=== PATIENT | male | born 1970 | race Caucasian/White ===

== ENCOUNTER → 2021-03-22 | Outpatient (CLI) | payer MEDICARE | LOC: MRI 14:02 | PROVIDERS: ATTEND Orthopaedic Surgery Adult Reconstructive Orthopaedic Surgery | DX: Z96.652 Presence of left artificial knee joint (principal) ==

== ENCOUNTER 2024-11-05 16:09 | Emergency (ER) | payer MEDICARE, OTHER ==
[~2024-11-05] VITALS: Ht 182.9 cm; Wt 113.4 kg
[2024-11-05 17:04] VITALS: RESP 18
[2024-11-05 17:10] VITALS: TEMP 97.9
[2024-11-05] MEDS: SODIUM CHLORIDE 0.9% 500ML 500 ML IV ONE (18:37)
[2024-11-05 18:53] LABS: BASOPHILS # (AUTO) 0.1 (0.0-0.1); BASOPHILS % 0.7 % (0.0-1.0); EOSINOPHILS # (AUTO) 0.4 (0.0-0.4); EOSINOPHILS % 4.7 % (0.0-6.0); HEMATOCRIT 42.1 % (38.2-49.6); HEMOGLOBIN 13.9 g/dL (14.0-18.0); LYMPHOCYTES # (AUTO) 2.3 (1.0-3.2); LYMPHOCYTES % 26.3 % (18.0-39.1); MEAN CORPUSCULAR HEMOGLOBIN 30.3 pg (28-32); MEAN CORPUSCULAR VOLUME 91.7 fL (81-99); MONOCYTES # (AUTO) 0.9 (0.2-0.8); MONOCYTES % 9.9 % (4.4-11.3); NEUTROPHILS # (AUTO) 5.1 (2.1-6.9); NEUTROPHILS % 58.2 % (38.7-80.0); PLATELET COUNT 343 x10e3/uL (140-360); RED BLOOD COUNT 4.59 x10e6/uL (4.3-5.7); RED CELL DISTRIBUTION WIDTH 11.7 % (11.7-14.4); WHITE BLOOD COUNT 8.85 x10e3/uL (4.8-10.8)
[2024-11-05] MEDS: HYDROCODONE/APAP 10MG-325MG TAB PO ONE (19:13)
[2024-11-05 19:14] LABS: ANION GAP 15.3 mmol/L (8-16); CALCIUM 9.7 mg/dL (8.4-10.2); CREATININE, SERUM 1.16 mg/dL (0.72-1.25); POTASSIUM 4.3 mmol/L (3.5-5.1)
[2024-11-05 19:17] LABS: ALBUMIN 3.8 g/dL (3.5-5.0); BILIRUBIN,DIRECT 0.1 mg/dL (0.0-0.5); BILIRUBIN,TOTAL 0.4 mg/dL (0.2-1.2); TOTAL PROTEIN 7.2 g/dL (6.5-8.1)
[2024-11-05] MEDS ORDERED: IOPAMIDOL 370 MG/ML 100 ML INFUS..BTL INJ ONE (19:25)
[2024-11-05 20:51] VITALS: PULSE 88
[2024-11-05] MEDS ORDERED: AMLODIPINE BESYL5 MG PO (21:44)
[2024-11-05 21:51] VITALS: BP 159/92; O2SAT 96
== END 2024-11-05 21:57 | disposition home or self-care (01) ==
LOC: ER 18:15
DX: S30.1XXA Contusion of abdominal wall, initial encounter (principal); M54.50 Low back pain, unspecified; W05.0XXA Fall from non-moving wheelchair, initial encounter; Y92.89 Other specified places as the place of occurrence of the external cause; K80.20 Calculus of gallbladder without cholecystitis without obstruction; K76.0 Fatty (change of) liver, not elsewhere classified
CPT/HCPCS: 36415; 70450; 72125; 74177; 80048; 80076; 83690; 85025; 99284; J7040; Q9967

== ENCOUNTER 2025-05-01 07:27 | Inpatient (IN) | payer MEDICARE, OTHER ==
[2025-05-01] VITALS (7 sets, daily range): BP systolic 119–126; BP diastolic 75–84; PULSE 98–109; RESP 12–20; TEMP 97.7–98.5; O2SAT 94–95
[~2025-05-01] VITALS: Ht 182.9 cm; Wt 113.4 kg
[~2025-05-01 07:27] MED LIST: AMLODIPINE BESYL5 MG PO
[2025-05-01] MEDS: LEVOFLOXACIN 750MG/D5W 150ML 150 ML IV SCH (07:45)
[2025-05-01] MEDS: SODIUM CHLORIDE 0.9% 1000ML 1,000 ML IV STA ×2 (08:17→09:33)
[2025-05-01] MEDS: ACETAMINOPHEN 325 MG TAB PO STA (08:17)
[2025-05-01 08:20] LABS: BASOPHILS % 0.6 % (0.0-1.0); EOSINOPHILS % 4.6 % (0.0-6.0); LYMPHOCYTES % 25.8 % (18.0-39.1); MONOCYTES % 8.1 % (4.4-11.3); NEUTROPHILS % 60.5 % (38.7-80.0); RED CELL DISTRIBUTION WIDTH 11.7 % (11.7-14.4)
[2025-05-01 08:44] LABS: EST GLOMERULAR FILTRATION RATE 66.0 ML/MIN (>=60)
[2025-05-01] MEDS: SODIUM CHLORIDE 0.9% 1000ML 1,000 ML IV SCH (11:31)
[2025-05-01] MEDS ORDERED: LINEZOLID 600 MG/D5W 300ML 300 ML IV SCH (12:15)
[2025-05-01] MEDS ORDERED: HYDRALAZINE HCL 20 MG/ML VIAL IV PRN (14:45)
[2025-05-01] MEDS ORDERED: POTASSIUM CHLORIDE 20 MEQ TAB CR PO PRN (14:45)
[2025-05-01] MEDS ORDERED: DIPHENHYDRAMINE HCL 25 MG CAP PO PRN (14:45)
[2025-05-01] MEDS ORDERED: ACETAMINOPHEN 325 MG TAB PO PRN (14:45)
[2025-05-01] MEDS ORDERED: ALBUTEROL/IPRATROPIUM 3 ML NEB NEB PRN (14:45)
[2025-05-01] MEDS ORDERED: LIDOCAINE 4% PATCH TP PRN (14:45)
[2025-05-01] MEDS ORDERED: DOCUSATE SODIUM 100 MG CAP PO PRN (14:45)
[2025-05-01] MEDS ORDERED: DEXTROSE 50% SYRINGE 50 ML IV PRN (14:45)
[2025-05-01] MEDS ORDERED: BENZONATATE 100 MG CAP PO PRN (14:45)
[2025-05-01] MEDS ORDERED: SIMETHICONE 80 MG CHEW PO PRN (14:45)
[2025-05-01] MEDS: FUROSEMIDE INJ 10 MG/ML 4 ML VIAL IV SCH (16:06)
[2025-05-01] MEDS: MEROPENEM 1 GM in SODIUM CHLORIDE 0.9% 100 ML IV SCH (16:06)
[2025-05-01] MEDS: ONDANSETRON HCL INJ 2MG/ML 2ML 2 MG/ML VIAL IV PRN (16:07)
[2025-05-01] MEDS: Morphine 4mg INJECTION 4 MG/ML INJ IV PRN (16:07)
[2025-05-01] MEDS: LINEZOLID 600 MG/D5W 300ML 300 ML IV SCH ×2 (16:30→21:54)
[2025-05-01] MEDS: ENOXAPARIN SOD INJ 40 MG/0.4 ML SYR SC SCH (18:49)
[2025-05-01] MEDS ORDERED: MELATONIN 5 MG TABLET PO PRN (21:00)
[2025-05-01] MEDS ORDERED: METFORMIN HCL500 MG PO (22:17)
[2025-05-01] MEDS: INSULIN LISPRO 100 UNIT/1 ML 3ML VIAL SQ SCH (22:56)
[2025-05-02] VITALS (9 sets, daily range): BP systolic 109–135; BP diastolic 75–93; PULSE 70–105; RESP 20–21; TEMP 97.4–98.8; O2SAT 90–98
[2025-05-02 06:32] LABS: BASOPHILS % 0.8 % (0.0-1.0); EOSINOPHILS % 6.3 % (0.0-6.0); LYMPHOCYTES % 27.9 % (18.0-39.1); MONOCYTES % 9.2 % (4.4-11.3); NEUTROPHILS % 55.6 % (38.7-80.0); RED CELL DISTRIBUTION WIDTH 11.7 % (11.7-14.4)
[2025-05-02 07:02] LABS: EST GLOMERULAR FILTRATION RATE 64.0 ML/MIN (>=60)
[2025-05-02] MEDS: PANTOPRAZOLE SOD 40 MG TABEC PO SCH (09:10)
[2025-05-02] MEDS: FUROSEMIDE INJ 100 MG in SODIUM CHLORIDE 0.9% 90 ML IV SCH (13:30)
[2025-05-03] VITALS: BP 128/94; PULSE 120; RESP 20; TEMP 97.8; O2SAT 97
[2025-05-03] MEDS: POTASSIUM CHLORIDE 20 MEQ TAB CR PO STA (01:30)
[2025-05-03 01:38] LABS: AMPHETAMINES SCREEN,URINE POSITIVE (NEGATIVE); CANNABINOIDS SCREEN,URINE NEGATIVE (NEGATIVE); COCAINE SCREEN,URINE NEGATIVE (NEGATIVE); OPIATES SCREEN,URINE POSITIVE (NEGATIVE)
[2025-05-03 01:39] LABS: METHADONE SCREEN, URINE NEGATIVE (NEGATIVE)
[2025-05-03 06:26] VITALS: PULSE 82; RESP 20; O2SAT 95
[2025-05-03] MEDS: MUPIROCIN 2% OINT 22 GM TUBE TOP SCH (09:00)
[2025-05-03 11:24] VITALS: BP 128/82; PULSE 106; RESP 19; TEMP 98.1; O2SAT 96
[2025-05-03 12:20] LABS: CANNABINOIDS SCREEN,URINE NEGATIVE (NEGATIVE); COCAINE SCREEN,URINE NEGATIVE (NEGATIVE); METHADONE SCREEN, URINE NEGATIVE (NEGATIVE)
[2025-05-03 12:23] LABS: AMPHETAMINES SCREEN,URINE POSITIVE (NEGATIVE); OPIATES SCREEN,URINE POSITIVE (NEGATIVE)
[2025-05-04] VITALS (9 sets, daily range): BP systolic 123–133; BP diastolic 74–83; PULSE 61–119; RESP 18–20; TEMP 97.9–98.8; O2SAT 92–100
[2025-05-04 12:10] LABS: BASOPHILS % 0.6 % (0.0-1.0); EOSINOPHILS % 4.9 % (0.0-6.0); LYMPHOCYTES % 21.5 % (18.0-39.1); MONOCYTES % 7.9 % (4.4-11.3); NEUTROPHILS % 64.6 % (38.7-80.0); RED CELL DISTRIBUTION WIDTH 11.6 % (11.7-14.4)
[2025-05-04 12:58] LABS: EST GLOMERULAR FILTRATION RATE 83.0 ML/MIN (>=60)
[2025-05-04] MEDS: ACETAMINOPHEN/CODEINE 300MG - 30MG TAB PO PRN (20:18)
[2025-05-05] VITALS (8 sets, daily range): BP systolic 119–136; BP diastolic 77–92; PULSE 86–112; RESP 18–20; TEMP 97.2–98.6; O2SAT 92–98
[2025-05-05] MEDS: METOPROLOL SUCCINATE 25 MG TAB XL PO SCH (09:14)
[2025-05-05] MEDS: LOSARTAN POTASSIUM 25 MG TAB PO SCH (09:14)
[2025-05-05] MEDS ORDERED: DOXYCYCLINE HY100 MG PO (14:58)
[2025-05-05] MEDS ORDERED: TOPROL XL25 MG PO (14:58)
[2025-05-05] MEDS ORDERED: ASPIRIN EC81 MG PO (15:01)
[2025-05-05] MEDS ORDERED: POTASSIUM CHLO10 ME1 PO (15:01)
[2025-05-05] MEDS ORDERED: LIPITOR10 MG PO (15:03)
== END 2025-05-05 17:44 | disposition home or self-care (01) | DRG 871 ==
LOC: ER 07:38 → ERHOLD 09:28 → MED/SURG2 18:16
PROVIDERS: ADMIT Internal Medicine; ATTEND Internal Medicine
PROC: 06HY33Z Insertion of Infusion Device into Lower Vein, Percutaneous Approach (ICD-10-PCS; principal; 2025-05-01)
PROC: 3E03329 Introduction of Other Anti-infective into Peripheral Vein, Percutaneous Approach (ICD-10-PCS; 2025-05-01)
PROC: 05HY33Z Insertion of Infusion Device into Upper Vein, Percutaneous Approach (ICD-10-PCS; 2025-05-04)
DX: A41.9 Sepsis, unspecified organism (principal); I50.41 Acute combined systolic (congestive) and diastolic (congestive) heart failure; E87.20 Acidosis, unspecified; L03.116 Cellulitis of left lower limb; L03.115 Cellulitis of right lower limb; R65.20 Severe sepsis without septic shock; E11.9 Type 2 diabetes mellitus without complications; E66.01 Morbid (severe) obesity due to excess calories; H91.01 Ototoxic hearing loss, right ear; I89.0 Lymphedema, not elsewhere classified; I11.0 Hypertensive heart disease with heart failure; R53.83 Other fatigue; T36.8X5A Adverse effect of other systemic antibiotics, initial encounter; Z88.1 Allergy status to other antibiotic agents; Z88.0 Allergy status to penicillin; Z91.199 Patient's noncompliance with other medical treatment and regimen due to unspecified reason; Z79.84 Long term (current) use of oral hypoglycemic drugs; Z68.33 Body mass index [BMI] 33.0-33.9, adult; Z82.49 Family history of ischemic heart disease and other diseases of the circulatory system; Z91.148 Patient's other noncompliance with medication regimen for other reason
CPT/HCPCS: 36415; 36555; 36568; 71045; 80048; 80053; 80307; 82140; 82550; 82948; 83036; 83605; 83690; 83735; 83880; 84443; 84484; 85025; 87040; 87086; 93005; 93306; 93970; 94799; 96372; 99284; J1335; J1650; J1938; J1940; J2020; J2185; J2270; J2405; J2470; J7030; J7050